=== PATIENT | female | born 1955 | race African-American/Black ===

== ENCOUNTER 2016-11-26 11:32 | Emergency (ER) | payer MEDICAID, SELFPAY ==
[~2016-11-26] VITALS: Ht 162.6 cm; Wt 72.6 kg
[~2016-11-26 11:32] MED LIST: ASPIRIN81 MG ORAL
[2016-11-26] MEDS ORDERED: AMOXICILLIN500 MG ORAL (12:23)
[2016-11-26] MEDS ORDERED: IBUPROFEN600 MG ORAL (12:23)
[2016-11-26] MEDS ORDERED: PROMETHAZINE-D118 ML ORAL (12:23)
[2016-11-26] MEDS ORDERED: DEBROX15 M1 RIGHT EAR (12:23)
--- NOTE | 2016-11-26 12:36 | Emergency Room Report ---
History of Present Illness General Chief Complaint: Sore Throat Source: Patient Present Illness HPI The patient is a 61-year-old female presenting with 3 days of sore throat, productive cough, and subjective fevers. Patient does need to recent contact with sick grandchildren who had similar symptoms. The patient states pain is a 6/10 dull ache to the back of the throat and is worse with swallowing. The patient denies any other symptoms including nausea, vomiting, chills, headache, shortness of breath, chest pain, rash Allergies: Coded Allergies: No Known Allergies (Unverified , 04/29/13) Patient History Past Medical History: see triage record Pertinent Family History: none Last Menstrual Period: na Now: No Reviewed Nursing Documentation: PMH: Agreed, PSxH: Agreed Nursing Documentation-PMH Past Medical History: No Stated History Review of Systems All Other Systems: negative except mentioned in HPI Physical Exam Vital Signs Date Time Temp Pulse Resp B/P Pulse Ox O2 Delivery O2 Flow Rate FiO2 11/26/16 11:53 99.1 107 20 152/90 98 Room Air Sp02 EP Interpretation: reviewed, normal General Appearance: no apparent distress, alert, GCS 15, non-toxic Head: normocephalic, atraumatic Eyes: bilateral eye PERRL, bilateral eye normal inspection ENT: tonsillar swelling, pharyngeal erythema, tonsillar exudate, other - R ear cerumen impaction Neck: full range of motion, supple/symm/no masses Respiratory: chest non-tender, lungs clear, normal breath sounds, no wheezing, speaking full sentences Cardiovascular #1: regular rate, rhythm, no edema Genitourinary: normal inspection, no CVA tenderness Musculoskeletal: back normal, gait/station normal, normal range of motion, non- tender Neurologic: alert, oriented x3, responsive, motor strength/tone normal, sensory intact, speech normal Psychiatric: judgement/insight normal, memory normal, mood/affect normal, no suicidal/homicidal ideation Skin: normal color, no rash, warm/dry, well hydrated Lymphatic: adenopathy - cervical Medical Decision Making PA Attestation Dr. Rand is my supervising physician. Patient management was discussed with my supervising physician Diagnostic Impression: Primary Impression: Impacted cerumen of right ear Additional Impression: Pharyngitis, acute ER Course The patient is a 61-year-old female presenting with 3 days of sore throat, productive cough, and subjective fevers. Differential diagnosis include but not limited to pharyngitis, sinusitis, AOM, bronchitis, PNA Physical exam: Afebrile. No apparent distress HEENT exam: There is bilateral tonsillar edema, erythema, and exudate. Uvula midline. Moist mucous membranes. There is bilateral cervical lymphadenopathy. R ear: cerumen impaction Lungs are clear to auscultation bilaterally Skin is warm and dry. No rash The patient will be discharged home with a prescription for amoxicillin, cough medication, and debrox and is given ER precautions. Patient will followup with primary care Last Vital Signs Date Time Temp Pulse Resp B/P Pulse Ox O2 Delivery O2 Flow Rate FiO2 11/26/16 11:53 99.1 107 20 152/90 98 Room Air Status: improved Disposition: HOME, SELF-CARE Condition: Improved Scripts Carbamide Peroxide (DEBROX) 15 Ml Drops 10 DROP RIGHT EAR TWICE A DAY for 4 Days, ML 0 Refills Prov: JAMIR ARANDA P.A. 11/26/16 D-Methorphan Hb/Prometh Hcl* (PROMETHAZINE-DM SYRUP*) 118 Ml Syrup 5 ML ORAL Q6H Y for For Cough, #118 ML 0 Refills Prov: BRADANJAMIR P.A. 11/26/16 Amoxicillin* (AMOXIL*) 500 Mg Capsule 500 MG ORAL BID, #20 CAP Prov: TERZIANJAMIR P.A. 11/26/16 Ibuprofen* (MOTRIN*) 600 Mg Tablet 600 MG ORAL Q8H Y for For Pain, #30 TAB 0 Refills Prov: TERZIANJAMIR P.A. 11/26/16 Patient Instructions: Pharyngitis, Sore Throat Additional Instructions: I discussed my findings with the patient. All questions and concerns have been answered. Treatment and medication compliance have been addressed. I advised the patient that they need to follow up with PMD in 3-5 days. Return to ED if pain remains or worsens, cough worsens or remains, you notice blood in your sputum, you notice wheezing, you experience a fever, or if needed for any reason. Patient verbalized understanding of discharge instructions. JAMIR ARANDA Nov 26, 2016 12:36
[2016-11-26 12:42] VITALS: BP 149/95
== END 2016-11-26 12:42 | disposition home or self-care (01) ==
LOC: EMR 12:25
DX: J02.9 Acute pharyngitis, unspecified (principal); H61.21 Impacted cerumen, right ear
CPT/HCPCS: 99284

== ENCOUNTER 2018-01-21 19:22 | Emergency (ER) | payer MEDICAID ==
[~2018-01-21] VITALS: Ht 162.6 cm; Wt 68.0 kg
[~2018-01-21 19:22] MED LIST changes: +AMOXICILLIN500 MG ORAL; +DEBROX15 M1 RIGHT EAR; +IBUPROFEN600 MG ORAL; +PROMETHAZINE-D118 ML ORAL
[2018-01-21 19:45] VITALS: BP 132/78
--- NOTE | 2018-01-21 19:49 | Emergency Room Report ---
History of Present Illness General Chief Complaint: Upper Respiratory Illness Source: Patient Present Illness HPI 62-year-old female patient presents ER complaining of cough 1 month. Patient reports cough with phlegm during this time. Denies hemoptysis. Denies past medical history of CHF, cardiovascular disease, PE, DVT. Patient denies calf pain at this time. Patient reports taking Robitussin with mild relief of symptoms. Denies fever or other acute complaints. Denies history of IV drug abuse. Denies history of cancer walking periods of immobilization. Denies taking any medications or past medical history. denies smoking. denies history of asthma. Allergies: Coded Allergies: No Known Allergies (Unverified , 04/29/13) Patient History Past Medical History: see triage record Reviewed Nursing Documentation: PMH: Agreed; PSxH: Agreed Nursing Documentation-PMH Past Medical History: No Stated History Review of Systems All Other Systems: negative except mentioned in HPI Physical Exam Vital Signs Date Time Temp Pulse Resp B/P (MAP) Pulse Ox O2 Delivery O2 Flow Rate FiO2 01/21/18 19:28 98.2 83 16 152/97 96 Room Air 98.2 Sp02 EP Interpretation: reviewed, normal General Appearance: well appearing, no apparent distress, alert, GCS 15, non- toxic Head: normocephalic, atraumatic Eyes: bilateral eye normal inspection, bilateral eye PERRL ENT: hearing grossly normal, normal pharynx, no angioedema, normal voice, uvula midline, moist mucus membranes Respiratory: lungs clear, normal breath sounds, no rhonchi, no respiratory distress, no accessory muscle use, no wheezing, speaking full sentences, other - no stridor Cardiovascular #1: regular rate, rhythm, no edema Musculoskeletal: back normal, digits/nails normal, gait/station normal, normal range of motion, non-tender, no calf tenderness, Patience's Sign negative Skin: no rash Medical Decision Making PA Attestation Dr. Lee is my supervising Physician whom patient management has been discussed with. Diagnostic Impression: Primary Impression: Pneumonia ER Course Pt presents to ED c/o cough. DDX considered but are not limited to viral URI, pneumonia, strep throat, rhinitis, sinusitis, otitis media. Per well's criteria, low suspicion for PE at this time, does not require further labs or workup at this time. Will order chest x-ray to rule out underlying pathology.. VITAL SIGNS are WNL, patient is afebrile Ordered CXR ER COURSE: PE: Lungs clear to auscultation, no wheezes, rhonci or rales. Followup with PCP for further treatment and/or referral as needed. CXR shows possible LLL opacity, no cardiomegaly. Will treat for pneumonia. patient is afebrile, nontoxic-appearing, physical exam benign, pulse ox 96, no elevation in respiratory rate or pulse, patient okay for outpatient treatment with antibiotics. Consult with Dr. Lee, agrees with treatment and plan. ER precautions given. DISCHARGE: -Rx given for Azithromycin -Rx given for Tylenol/Acetaminophen -Rx given for Promethazine syrup for cough sx. At this time pt is stable for d/c to home. Patient is resting comfortably, in no acute distress, nontoxic appearing. Patient to take medications as instructed Will provide with patient care instructions and any necessary prescriptions. Care plan and follow-up instructions provided. Patient instructed to follow-up with primary care provider in 3 - 5 days. Patient questions asked and answered. Patient reports understanding and agreement to treatment plan. ER precautions given. Patient instructed to return to ER immediately for any new or worsening of symptoms including but not limited to increasing SOB, persistent fever, intractable vomiting. - Please note that this Emergency Department Report was dictated using Zetotest tech technology software, occasionally this can lead to erroneous entry secondary to interpretation by the dictation equipment. Chest X-Ray Diagnostic Results Chest X-Ray Diagnostic Results : Chest X-Ray Ordered: Yes # of Views/Limited/Complete: 1 View Indication: Other - cough EP Interpretation: Yes PA Xray: Interpretation reviewed, by supervising MD, and agrees with findings. Interpretation: other - LLL opacity Impression: Other - pneumonia TASH Scribe Text Tony Mace PA-C Last Vital Signs Date Time Temp Pulse Resp B/P (MAP) Pulse Ox O2 Delivery O2 Flow Rate FiO2 01/21/18 19:28 98.2 83 16 152/97 96 Room Air 98.2 Disposition: HOME, SELF-CARE Condition: Stable Scripts Promethazine Hcl (PROMETHAZINE HCL*) 6.25 Mg/5 Ml Syrup 5 ML ORAL Q8H, #120 ML 0 Refills Prov: Antione Mace P.A. 01/21/18 Acetaminophen* (TYLENOL EXTRA STRENGTH*) 500 Mg Tablet 500 MG ORAL Q8H PRN for Prn Headache/Temp > 101, #30 TAB 0 Refills Prov: Antione Mace 01/21/18 Azithromycin* (ZITHROMAX*) 250 Mg Tablet 250 MG ORAL DAILY, #6 TAB 0 Refills Take two tables once daily for 1 day, then one tablet once daily for 4 days. Prov: Antione Mace 01/21/18 Patient Instructions: Community-Acquired Pneumonia, Adult, [id number] Additional Instructions: Followup with primary care provider in 3 -5 days. discuss further treatment and referral as needed, discussed need for pneumonia vaccine at that time. Take medications as directed. Patient questions asked and answered. ER precautions given, patient instructed to return to ER immediately for any new or worsening of symptoms including but not limited to chest pain, shortness of breath, intractable vomiting, abdominal pain, vision loss. Antione Mace January 21, 2018 19:49
[2018-01-21] MEDS ORDERED: TYLENOL EXTRA500 MG ORAL (20:05)
[2018-01-21] MEDS ORDERED: ZITHROMAX250 MG ORAL (20:05)
[2018-01-21] MEDS ORDERED: PROMETHAZI6.25 MG/1 ORAL (20:07)
[2018-01-21 20:15] VITALS: BP 132/78
[2018-01-21 20:30] VITALS: BP 132/78
--- NOTE | 2018-01-22 10:45 | Diagnostic Imaging Report ---
Indication: Chest pain Technique: One view of the chest Comparison: A 28/09/2012 Findings: Lungs and pleural spaces are clear. Heart size is normal. No significant change Impression: No acute process
== END 2018-01-21 20:36 | disposition home or self-care (01) ==
LOC: EMR 19:44
DX: J18.9 Pneumonia, unspecified organism (principal)
CPT/HCPCS: 71045; 99284

== ENCOUNTER 2018-11-02 10:18 | Emergency (ER) | payer MEDICARE, MEDICAID ==
[~2018-11-02] VITALS: Ht 162.6 cm; Wt 68.0 kg
[~2018-11-02 10:18] MED LIST changes: +PROMETHAZI6.25 MG/1 ORAL; +TYLENOL EXTRA500 MG ORAL; +ZITHROMAX250 MG ORAL
[2018-11-02] MEDS ORDERED: BENZONATATE200 MG ORAL (10:26)
[2018-11-02 10:30] VITALS: BP 144/85
--- NOTE | 2018-11-02 10:30 | NUR ---
ED Nurse Note: Pt walked in to ER c/o coughing for 4 days. per pt, she had light green thick sputum upon coughing. pt has chest pain related to coughing 12/17. pt aao x4 and skin clean and intact.
[2018-11-02] MEDS ORDERED: IMODIUM A-1 MG/7.5 M PO (11:43)
--- NOTE | 2018-11-02 11:44 | Emergency Room Report ---
History of Present Illness General Chief Complaint: Flu Like Symptoms Source: Patient Present Illness HPI 62-year-old female who complains of coughing and diarrhea. She was recently treated for a bronchitis. She was given Tessalon Perles and azithromycin. She states that after she started taking the antibiotic he started having several episodes of diarrhea. She has no abdominal pain. No exacerbating or relieving factor. She denies any fever. Allergies: Coded Allergies: No Known Allergies (Unverified , 04/29/13) Patient History Past Medical History: none Past Surgical History: none Pertinent Family History: none Nursing Documentation-H Past Medical History: No Stated History Review of Systems All Other Systems: negative except mentioned in HPI Physical Exam Vital Signs Date Time Temp Pulse Resp B/P (MAP) Pulse Ox O2 Delivery O2 Flow Rate FiO2 11/02/18 10:21 98.4 99 16 144/85 95 Room Air General Appearance: well appearing, no apparent distress Head: normocephalic, atraumatic ENT: hearing grossly normal, normal voice Neck: full range of motion, supple Respiratory: no respiratory distress, speaking full sentences Cardiovascular #1: normal inspection Gastrointestinal: normal inspection, non tender, soft, no peritonitis, no bruit , non-distended Neurologic: normal inspection, alert, oriented x3 Medical Decision Making Diagnostic Impression: Primary Impression: Diarrhea ER Course The patient was seen and examined. Patient has no abdominal tenderness. She is afebrile. C. difficile colitis is a consideration, unlikely. However, she should be followed up by her primary care physician. She has no melena or hematochezia. No other associated symptoms. At this time, I have requested the patient to discontinue the azithromycin. We will start the patient on Imodium. She by her primary care physician as an outpatient. Last Vital Signs Date Time Temp Pulse Resp B/P (MAP) Pulse Ox O2 Delivery O2 Flow Rate FiO2 11/02/18 10:30 99 16 Room Air 11/02/18 10:30 98.4 144/85 95 Disposition: HOME, SELF-CARE Condition: Stable Scripts Loperamide Hcl (IMODIUM A-D) 1 Mg/7.5 Ml Liquid 1 MG PO EVERY 3 HOURS PRN for Diarrhea for 4 Days, #10 ML Prov: MERY GOLDSMITH 11/02/18 Patient Instructions: Diarrhea, Adult, [id number] MERY GOLDSMITH Nov 02, 2018 11:44
[2018-11-02 12:14] VITALS: BP 144/85
--- NOTE | 2018-11-02 12:15 | NUR ---
ER DISCHARGE NOTE: Patient is cleared to be discharged per ERMD, pt is aox4, on room air, with stable vital signs. pt was given dc and prescription instructions, pt was able to verbalize understanding, pt id removed. pt is able to ambulate with steady gait. pt took all belongings.
== END 2018-11-02 12:10 | disposition home or self-care (01) ==
LOC: EMR 11:41
DX: R19.7 Diarrhea, unspecified (principal); J40 Bronchitis, not specified as acute or chronic
CPT/HCPCS: 99282

== ENCOUNTER 2019-11-23 10:06 | Inpatient (IN) | payer MEDICARE, MEDICAID ==
[~2019-11-23] VITALS: Ht 162.6 cm; Wt 62.6 kg
[~2019-11-23 10:06] MED LIST changes: +BENZONATATE200 MG ORAL; +IMODIUM A-1 MG/7.5 M PO
[2019-11-23 10:30] VITALS: BP 158/91
--- NOTE | 2019-11-23 10:30 | NUR ---
ED Nurse Note: Pt walked in from the grocery store d/t near syncope. Pt was walking around the store when she "felt like she was going to pass out." Pt reports sitting down immediately and not losing consciousness. Pt states that she has never felt this way before and wanted to get checke out in the ED. Pt heart rate 107. All other vitals stable as documented.
--- NOTE | 2019-11-23 10:43 | NUR ---
ED Nurse Note: ED MD @ bedside. Pt reports having a "cold" for 2 weeks, denies fever.
--- NOTE | 2019-11-23 10:55 | Emergency Room Report ---
History of Present Illness General Chief Complaint: Syncope Source: Patient Present Illness HPI Patient is a very pleasant 64-year-old female denies any significant past medical history who presents to the ER complaining of presyncope. Patient states that she was in a grocery store when she felt lightheaded and like she was going to pass out. She states that she sat down and started feeling better. She denies any history of similar symptoms. She denies any fever or chills. She denies any chest pain or shortness of breath. She denies any focal weakness. She denies any headache or blurry vision. Patient states that she does take daily aspirin. COVID-19 risk:Travel to affect: No Has patient experienced chase: No Allergies: Coded Allergies: No Known Allergies (Unverified , 04/29/13) Patient History Past Medical History: none Past Surgical History: none Social History: Denies: smoking, alcohol use, drug use Now: No Nursing Documentation-[facility] Past Medical History: No Stated History Review of Systems All Other Systems: negative except mentioned in HPI Physical Exam Vital Signs Date Time Temp Pulse Resp B/P (MAP) Pulse Ox O2 Delivery O2 Flow Rate FiO2 11/23/19 10:22 98.1 108 19 170/92 (118) 94 Room Air Sp02 EP Interpretation: reviewed, normal General Appearance: no apparent distress, alert, GCS 15, non-toxic Head: normocephalic, atraumatic Eyes: bilateral eye normal inspection, bilateral eye PERRL ENT: hearing grossly normal, normal pharynx, no angioedema, normal voice Neck: full range of motion, supple/symm/no masses Respiratory: chest non-tender, lungs clear, normal breath sounds, speaking full sentences Cardiovascular #1: no edema, tachycardia Gastrointestinal: normal bowel sounds, non tender, soft, non-distended, no guarding, no rebound Rectal: deferred Genitourinary: normal inspection, no CVA tenderness Musculoskeletal: back normal, normal range of motion, calf tenderness, gait/ station normal, non-tender Neurologic: alert, motor strength/tone normal, oriented x3, sensory intact, responsive, speech normal Psychiatric: judgement/insight normal, memory normal, mood/affect normal, no suicidal/homicidal ideation Skin: no rash Lymphatic: no adenopathy Medical Decision Making Diagnostic Impression: Primary Impression: Near syncope Additional Impression: Microscopic hematuria ER Course Patient is well-appearing. She is resting comfortably in bed. Labs demonstrate no significant acute abnormalities except for microscopic hematuria. Patient given aspirin. EKG demonstrates no ST elevation. No cardiac arrhythmias noted on slot ambassador while patient has been here. Patient will be admitted for further treatment and evaluation. EKG Diagnostic Results EKG Time: 10:30 EP Interpretation: MD Bernice Rate: tachycardiac Rhythm: other - sinus tachycardia ASA given to the pt in ED: No Rhythm Strip Diag. Results Rhythm Strip Time: 10:55 EP Interpretation: yes Rate: 89 Rhythm: NSR, no PVC's, no ectopy Last Vital Signs Date Time Temp Pulse Resp B/P (MAP) Pulse Ox O2 Delivery O2 Flow Rate FiO2 11/23/19 10:30 98.1 107 19 158/91 94 Room Air Disposition: PLACE IN OBSERVATION Condition: Critical Physician Consult: Dr. West to admit to Telemetry Observation Referrals: NON PHYSICIAN (PCP) Stacy Queen M.D. Nov 23, 2019 10:55
[2019-11-23 11:14] LABS: APPEARANCE,URINE CLEAR; BILIRUBIN, URINE NEGATIVE (NEGATIVE); COLOR,URINE PALE YELLOW; GLUCOSE, URINE (UA) NEGATIVE (NEGATIVE); KETONES,URINE NEGATIVE (NEGATIVE); LEUKOCYTE ESTERASE ,URINE NEGATIVE (NEGATIVE); NITRITE,URINE NEGATIVE (NEGATIVE); PH,URINE 6.5 (4.5-8.0); PROTEIN,URINE NEGATIVE (NEGATIVE); UROBILINOGEN,URINE NORMAL MG/DL (0.0-1.0)
[2019-11-23] MEDS ORDERED: Aspirin Baby 81mg ORAL ONE (11:15)
[2019-11-23 11:25] LABS: EOSINOPHILS % (AUTO) 1.7 % (0.0-3.0); HEMATOCRIT 40.6 % (37.0-47.0); HEMOGLOBIN 13.2 G/DL (12.0-16.0); LYMPHOCYTES % (AUTO) 17.9 % (20.0-45.0); MEAN CORPUSCULAR VOLUME 86 FL (80-99); MONOCYTES % (AUTO) 10.3 % (1.0-10.0); NEUTROPHILS % (AUTO) 69.1 % (45.0-75.0); PLATELET COUNT 257 K/UL (150-450); RED BLOOD COUNT 4.72 M/UL (4.20-5.40); RED CELL DISTRIBUTION WIDTH 11.2 % (11.6-14.8); WHITE BLOOD COUNT 7.4 K/UL (4.8-10.8)
[2019-11-23 12:11] LABS: ANION GAP 14 mmol/L (5-15); BLOOD UREA NITROGEN 12 mg/dL (7-18); CALCIUM 9.3 MG/DL (8.5-10.1); CARBON DIOXIDE 26 MMOL/L (21-32); CHLORIDE 107 MMOL/L (98-107); CREATININE 0.6 MG/DL (0.55-1.30); POTASSIUM 3.4 MMOL/L (3.5-5.1); SODIUM 146 MMOL/L (136-145)
[2019-11-23 12:23] LABS: ALANINE AMINOTRANSFERASE 15 U/L (12-78); ALBUMIN 3.8 G/DL (3.4-5.0); ALBUMIN/GLOBULIN RATIO 0.9 (1.0-2.7); ALKALINE PHOSPHATASE 89 U/L (46-116); ASPARTATE AMINO TRANSFERASE 15 U/L (15-37); BILIRUBIN,TOTAL 0.5 MG/DL (0.2-1.0)
[2019-11-23 12:30] VITALS: BP 154/89
--- NOTE | 2019-11-23 12:38 | Diagnostic Imaging Report ---
Indication: Abnormal chest sounds Technique: One view of the chest Comparison: 01/21/2018 Findings: Lungs and pleural spaces are clear. Heart size is normal. No significant interim change Impression: No acute process
--- NOTE | 2019-11-23 13:16 | NUR ---
ED Nurse Note: Report given to RAMANA Jolly on 2E. Primary MD to be changed prior to transporting pt.
--- NOTE | 2019-11-23 14:15 | NUR ---
ED Nurse Note: Pt transferred safely to 2E on the monitor.
--- NOTE | 2019-11-23 14:20 | NUR ---
NURSE NOTES: Received report from RAMANA Vidal. Patient in bed resting, no active s/s cardiac, respiratory distress noticed at this time. Patient denies pain at this time, denies syncope, on room air. Patient wearing mask stating had flu like symptoms for 2 weeks and is taking robitussin for 2 weeks. Occasional dry cough. Patient AOx4, steady gait. Belonging checked with RN, groundwater monitoring technician on. Bed in lowest position, side rails upx3, call light within reach. Will continue to monitor.
--- NOTE | 2019-11-23 15:01 | NUR ---
NURSE NOTES: Paged Dr. Russo for admission order, awaiting for callback. Will continue to monitor.
--- NOTE | 2019-11-23 15:52 | NUR ---
NURSE NOTES: Per Dr. Russo, cardiac diet for now, MD will put order. Order noted, entered, carried out. MD made aware patient was having flu like symptoms 2 weeks, requesting for Robitussin. Awaiting for callback. Will continue to monitor.
[2019-11-23 16:00] VITALS: BP 141/93
--- NOTE | 2019-11-23 16:12 | NUR ---
NURSE NOTES: Dr. Russo made aware dry cough with no fever. Per Dr. Russo, swab patient for influenza A&B, isolate patient until the result, CN made aware. Order noted, entered, carried out.
[2019-11-23] MEDS ORDERED: Promethazine/Codeine 5ml UD ORAL PRN (16:15)
[2019-11-23] MEDS: Benzonatate 100mg Perles ORAL SCH (17:23)
[2019-11-23] MEDS ORDERED: D5 1/2NS w/KCl 20mEq 1,000 ML IV SCH (17:30)
--- NOTE | 2019-11-23 19:21 | NUR ---
HAND-OFF: Report given to RAMANA Sotelo. Endorsed plan of care.
--- NOTE | 2019-11-23 19:51 | NUR ---
NURSE NOTES: Received from RAMANA Jolly. Patient alert, awake, and talkative. Bed in lowest position. Call light placed within reach. Will continue to monitor.
[2019-11-23 20:00] VITALS: BP 135/89
[2019-11-23] MEDS: Heparin 5000 units/ml inj SUBQ SCH (20:09)
[2019-11-24 00:42] VITALS: BP 123/87
--- NOTE | 2019-11-24 01:30 | Consultation ---
DATE OF CONSULTATION: 11/23/2019 CARDIOLOGY CONSULTATION CONSULTING PHYSICIAN: Cody West M.D. REQUESTING PHYSICIAN: Dougie Russo M.D. REASON FOR CONSULTATION: Near syncope. HISTORY OF PRESENT ILLNESS: This 64-year-old female who does not have any significant prior cardiovascular history. She was exposed to the flu approximately a week ago from younger family member. She fared well with some cough, but notes that it progressed over the last week. Today, she was coughing even more heavily and was at a grocery store when she felt lightheaded and about to pass out. She sat down and was able to allow these symptoms to resolve. The patient has never had any similar symptoms. She denied palpitations or associated shortness of breath nor focal weakness. PAST MEDICAL HISTORY: Unremarkable. ALLERGIES: None. MEDICATIONS: Aspirin one daily. FAMILY HISTORY: Noncontributory. SOCIAL HISTORY: Negative for smoking, alcohol, or substance abuse. REVIEW OF SYSTEMS: A 10-point review of systems performed. All negative other than noted above. PHYSICAL EXAMINATION: VITAL SIGNS: Blood pressure 170/90 in the emergency room with heart rate 108, respiratory rate 19, and she was afebrile. Subsequent blood pressure was 141/93 with heart rate 75 and respiratory rate 16. Oxygen saturation 97% on room air. HEENT: Conjunctivae are pink. Oropharynx is clear. Mucous membranes are moist. No sinus tenderness. NECK: Supple. Jugular venous pressure normal. No bruits. LUNGS: Clear. CARDIAC: Regular rhythm and rate. Normal S1 and S2 with no murmur, rub, or gallop. ABDOMEN: Soft and nontender. EXTREMITIES: No edema. NEUROLOGIC: Nonfocal. SKIN: Intact. LABORATORY DATA: Nasal swab negative for influenza A and B. White count 7.4 and hemoglobin 13.2. Sodium 146, potassium 3.4, bicarb 26, BUN 12, creatinine 0.6, and glucose 120. Troponin 0. TSH 0.56. Urinalysis with 2 to 4 white cells, 2 to 4 red cells, and few bacteria. IMPRESSION: 1. Posttussive near syncope. 2. Persisting cough, likely viral related. 3. Mild dehydration. 4. Hypernatremia. 5. Hypokalemia. PLAN: 1. Cardiac monitoring. 2. Check orthostatics. 3. Hypotonic IV fluid hydration. 4. Potassium replacement. 5. Check magnesium. 6. Sinus series. 7. Consider further imaging of the chest if symptoms persist. 8. Echocardiogram and carotid duplex study to follow. Cody West M.D. DR: SEEMA JOB#: [id number] CC:
[2019-11-24 04:48] VITALS: BP 126/83
--- NOTE | 2019-11-24 07:33 | NUR ---
NURSE NOTES: Nurse report given by RAMANA Sotelo. Patient's awake and sitting in high dailey in bed, eyes open spontaneously, AO x 4, denies pain, no s/s of distress or SOB, breathing regular and unlabored, complains of unproductive cough. Bed low and locked, call light within reach, side rails x 2, bed alarm is armed. IV is saline locked, patent and asymptomatic. Will continue to monitor.
--- NOTE | 2019-11-24 07:33 | NUR ---
HAND-OFF: Report given to RAMANA Meza. Patient stable. endorsed plan of care.
[2019-11-24 07:37] LABS: ALANINE AMINOTRANSFERASE 16 U/L (12-78); ALBUMIN 3.4 G/DL (3.4-5.0); ALBUMIN/GLOBULIN RATIO 0.9 (1.0-2.7); ALKALINE PHOSPHATASE 82 U/L (46-116); ANION GAP 11 mmol/L (5-15); ASPARTATE AMINO TRANSFERASE 10 U/L (15-37); BILIRUBIN,TOTAL 0.7 MG/DL (0.2-1.0); BLOOD UREA NITROGEN 10 mg/dL (7-18); CALCIUM 9.3 MG/DL (8.5-10.1); CARBON DIOXIDE 24 MMOL/L (21-32); CHLORIDE 106 MMOL/L (98-107); CREATININE 0.6 MG/DL (0.55-1.30); SODIUM 141 MMOL/L (136-145)
[2019-11-24 08:00] VITALS: BP 149/93
[2019-11-24] MEDS: Heparin 5000 units/ml inj SUBQ SCH (09:00)
--- NOTE | 2019-11-24 09:15 | History and Physical Report ---
DATE OF ADMISSION: 11/23/2019 CHIEF COMPLAINT: Near syncope. HISTORY OF PRESENT ILLNESS: The patient is a very pleasant 64-year-old female. She has no past medical history. She presented with a near syncopal episode while at home. According the patient, she was well until the day of admission. She is known to have had a nonproductive cough that has been gradually improving. She was at [employer]. When she came home, she felt weak and dizzy and had a near syncopal episode. She presented to the emergency room. On evaluation there, her initial troponin was negative. EKG was negative. Chest x-ray was clear. In light of the near syncopal episode, she is admitted for further evaluation and care. According to the patient, she has otherwise been doing well. She denies any diarrhea. She does admit to not eating breakfast the morning of the episode. PAST MEDICAL HISTORY: None. PAST SURGICAL HISTORY: None. CURRENT MEDICATIONS: None. FAMILY HISTORY: None. SOCIAL HISTORY: Negative for tobacco, ethanol, or drugs. REVIEW OF SYSTEMS: GENERAL: No fevers or chills. HEENT: No headaches or visual changes. CARDIOPULMONARY: No chest pain or shortness of breath. GASTROINTESTINAL: No nausea or vomiting. GENITOURINARY: No urgency or frequency. MUSCULOSKELETAL: No joint pain or swelling. NEUROLOGIC: No evidence of seizures. PHYSICAL EXAMINATION: VITAL SIGNS: Temperature 98 degrees, pulse 81, respirations 19, and blood pressure 149/93. GENERAL: The patient is well developed, in no apparent distress. HEART: Regular rate and rhythm. LUNGS: Clear. ABDOMEN: Soft, nontender, and nondistended. EXTREMITIES: Without clubbing, cyanosis, or edema. LABORATORY DATA: CBC - white count is 7, hemoglobin 13, and platelet count 257,000. Sodium 141, potassium 4, creatinine 0.6. Troponin was negative. TSH was normal. Urine was clear. EKG showed sinus rhythm. ASSESSMENT: This is a pleasant female admitted with complaints of near syncopal episodes suspect secondary to dehydration and hypoglycemia. PLAN: Cardiology consultation. Follow up repeat troponin. Check a 2D echo. We will mobilize the patient. If stable, she can likely be discharged home. Dougie Russo M.D. DR: SILKE JOB#: [id number] CC:
[2019-11-24] MEDS: Benzonatate 100mg Perles ORAL SCH ×2 (09:18→13:06)
--- NOTE | 2019-11-24 09:53 | NUR ---
NURSE NOTES: Pt refused CT of the jaw as she doesnt want to feel anxiety of being enclosed. Notified Md. nothing ordered. no new orders
[2019-11-24 12:00] VITALS: BP 127/87
--- NOTE | 2019-11-24 13:32 | NUR ---
CASE MANAGEMENT:REVIEW 64 YR OLD FEMALE WALKED IN TO OUR ER CC: NEAR SYNCOPE [facility]ILE [facility] STORE SI: NEAR SYNCOPE. MICROSCOPIC HEMATURIA 98.1 108 19 170/92 94% ON RA NA+146 K-3.4 GLUCOSE+120 IS: ASA PO CHEST XRAY CT : TO TELEMETRY PLAN: CAROTID DUPLEX 2DECHO
[2019-11-24] MEDS ORDERED: GUAIFENESIN-CO118 M1 ORAL (13:59)
--- NOTE | 2019-11-24 14:19 | Diagnostic Imaging Report ---
. Indication: Reason For Exam: SYNCOPE Technique: Grayscale and duplex images of the bilateral lower extremity veins Comparison: None Findings: Bilaterally, grayscale and duplex images demonstrate no evidence of intraluminal thrombus. Normal phasic Doppler waveforms, demonstrating normal augmentation response and no evidence of valvular insufficiency. Greater saphenous vein(s) and tibial veins are patent. Normal compressibility. Impression: Negative for evidence of lower extremity deep venous thrombosis bilaterally
--- NOTE | 2019-11-24 14:22 | Diagnostic Imaging Report ---
Indication: Syncope Technique: Grayscale and duplex images of the bilateral carotid and vertebral arteries Comparison: none Findings: Bilaterally, grayscale and duplex images demonstrate atherosclerotic plaquing resulting in less than 50% diameter sparing. Normal Doppler flow velocities and waveforms. Patent bilateral vertebral arteries, antegrade flow. Impression: Less than 50% diameter stenosis bilaterally All stenosis was measured based on the NASCET criteria. Velocity criteria are extrapolated from diameter data as defined by the Society of radiologists in ultrasound consensus conference. Radiology 2003:229; 340-346
--- NOTE | 2019-11-24 14:50 | NUR ---
NURSE NOTES: Patient's discharged per Dr. West's order. Patient's in stable condition, ambulates steady, breathing regular and unlabored, denies pain. Went over with discharge documents and belonging list together with patient at bedside and signed by patient. Patient understands to follow up with Dr. Wets's appointment next week and aware that Dr. West prescribed patient with new prescription that she needs to take it to her preferred pharmacy. IV removed, ID band discarded properly, tele monitor removed. Patient went home with assist of her family member in private vehicle. Charge nurse and psychiatric technician aware. Patient's off the floor at 1500.
[2019-11-24] MEDS ORDERED: D5 1/2NS w/KCl 20mEq 1,000 ML IV SCH (17:30)
--- NOTE | 2019-11-26 08:57 | Discharge Summary ---
Discharge Summary Discharge Summary _ DATE OF ADMISSION: 11/23/2019 DATE OF DISCHARGE: 11/24/2019 DISCHARGED BY: Dr. Russo REASON FOR ADMISSION: 64 years old female with unremarkable past medical history, was exposed to the flu about a week ago from the younger family member. Patient has some cough, which increased over the last week. While Doing grocery shopping, she felt lightheaded and was about to pass out . She sat down and was able to allow the symptoms to resolve. Patient presented to emergency room for further evaluation Patient never had similar symptoms in the past. She denied chest pain . She denied shortness of breath. She denied palpitations or any focal weakness . Troponin was negative . EKG revealed sinus rhythm ,no acute ischemic changes. No leukocytosis. Sodium 146, potassium 3.4, stable renal parameters. Urinalysis revealed no evidence of urinary tract infection . Chest x-ray demonstrated no acute cardiopulmonary pathology Influenza A and B swab was negative. Patient admitted to telemetry floor for near syncopal episode CONSULTANTS: corporate auditor Dr. West [facility]SE: Patient admitted to telemetry floor. Patient received 1 L of IV fluids. Repeated troponin was negative as well. Echocardiogram demonstrated preserved ejection fraction with no evidence of wall motion abnormality. No left ventricular hypertrophy. Right ventricular systolic pressure of 37 consistent with a mild pulmonary hypertension. Antitussive provided as needed. Patient also started on Tessalon Perls. DVT prophylaxis provided. Telemetry continued to show sinus rhythm , no evidence of arrhythmia Venous duplex bilateral lower extremity revealed no evidence of acute DVT. Syncope was thought to be related to some degree of dehydration in addition being posttussive. TSH was within normal limits. Potassium was replaced, magnesium was stable. Sodium normalized with hypotonic IV solution. Patient clinically stabilized and was ready for discharge home. Due to rapid and unexpected improvement in patient condition, patient was discharged in 1 day. FINAL DIAGNOSES: Near syncope, Dehydration Persistent cough , likely viral Mild dehydration Hypernatremia Hypokalemia DISCHARGE MEDICATIONS: See Medication Reconciliation list. DISCHARGE INSTRUCTIONS: Patient was discharged home. Follow-up with a primary care provider in 1 week. I have been assigned to dictate discharge summary for this account. I was not involved in the patient's management. Bonny Thomas NP Nov 26, 2019 08:57
== END 2019-11-24 16:15 | disposition home or self-care (01) | DRG 641 ==
LOC: EMR 10:39 → 2E 11:11 → EDBEDREQ 12:48
DX: E87.1 Hypo-osmolality and hyponatremia (principal); E86.0 Dehydration; E87.6 Hypokalemia; R05 Cough; B97.89 Other viral agents as the cause of diseases classified elsewhere
CPT/HCPCS: 36415; 71045; 80053; 81003; 83735; 83880; 84439; 84443; 84484; 85025; 85379; 86710; 93005; 93306; 93880; 93970; 96360; 99285